=== PATIENT | female | born 1985 | race Asian ===

== ENCOUNTER 2022-08-20 03:08 | Observation (INO) | payer MEDICAID ==
[~2022-08-20] VITALS: Ht 154.9 cm; Wt 72.0 kg
[2022-08-20 03:21] VITALS: BP 118/82
[2022-08-20 03:42] LABS: Basophils # (auto) 0 10 ^3/uL (0-0.2); Basophils % (auto) 0.3 % (0.0-2.0); Eosinophils # (auto) 0.1 10 ^3/uL (0-0.8); Hematocrit 34.4 % (36.0-46.0); Hemoglobin 11.3 g/dL (12.2-16.2); Lymphocytes % (auto) 26.7 % (10.0-50.0); Mean Corpuscular Hemoglobin 27.3 pg (28.0-32.0); Mean Corpuscular Hgb Conc. 32.8 g/dL (32.0-36.0); Mean Corpuscular Volume 83.4 fL (80.0-100.0); Monocytes # (auto) 0.8 10 ^3/uL (0-1.3); Monocytes % (auto) 9.9 % (0.0-12.0); Neutrophils # (auto) 4.7 10 ^3/uL (1.6-8.6); Neutrophils % (auto) 62.1 % (37.0-80.0); Nucleated Red Blood Cells % 0.6 %; Red Blood Cells 4.12 10^6/uL (4.0-5.20); Red Cell Distribution Width 15.5 % (11.8-14.3); White Blood Cell 7.6 10^3/uL (4.4-10.8)
[2022-08-20 03:58] LABS: Albumin 2.5 g/dL (3.4-5.0); Calcium 8.6 mg/dL (8.5-10.1); Potassium 3.9 mmol/L (3.5-5.1)
[2022-08-20 04:01] LABS: BUN/Creatinine Ratio 10.4
[2022-08-20 04:03] LABS: Bilirubin, Total 0.3 mg/dL (0.2-1.0)
[2022-08-20] MEDS ORDERED: PREN-96 PO (04:45)
== END 2022-08-20 04:53 | disposition home or self-care (01) ==
LOC: ER 03:08 → LDRP 03:56
PROVIDERS: ADMIT Obstetrics & Gynecology; ATTEND Obstetrics & Gynecology
DX: O26.893 Other specified pregnancy related conditions, third trimester (principal); R10.13 Epigastric pain; R07.89 Other chest pain; O62.9 Abnormality of forces of labor, unspecified; Z3A.37 37 weeks gestation of pregnancy
CPT/HCPCS: 36415; 59025; 80053; 81002; 84484; 85025; 93005; 94760; 99284; G0378